=== PATIENT | female | born 1980 ===

== ENCOUNTER 2018-05-23 05:47 | Day surgery (SDC) | payer BC ==
[2018-05-23] VITALS (12 sets, daily range): BP systolic 130–149; BP diastolic 76–99
[~2018-05-23] VITALS: Ht 170.2 cm; Wt 86.2 kg
[~2018-05-23 05:47] MED LIST: CENTRUM ULTRA1 EAC1 PO; GLYCOTROL CAPS1 EACH PO; VITAMIN C500 MG/15 PO
[2018-05-23] MEDS ORDERED: [UNRECOGNIZED DRUG - OTHER] PO (06:37)
[2018-05-23] MEDS ORDERED: PRENATAL FORMU1 EAC5 PO (06:37)
[2018-05-23] MEDS ORDERED: CLARITIN D PO (06:37)
[2018-05-23] MEDS ORDERED: ENSKYCE1 EACH PO (06:37)
[2018-05-23] MEDS ORDERED: cefOXitin Sod 2 GM in D5W 110 ML IVPB ONE (07:00)
[2018-05-23] MEDS ORDERED: Metoclopramide 10mg/2ml Inj IVP PRN (07:15)
[2018-05-23] MEDS ORDERED: LORazepam Inj 2mg/ml 1ml IV PRN (07:15)
[2018-05-23] MEDS ORDERED: Midazolam 2mg/2ml Inj IVP PRN (07:15)
[2018-05-23] MEDS ORDERED: DiphenhydrAMINE 50mg/ml Inj IVP PRN (07:15)
[2018-05-23] MEDS ORDERED: LR 1000ml 1,000 ML IVLG SCH (07:15)
[2018-05-23] MEDS ORDERED: Hydromorphone 0.5mg/0.5ml inj IVP PRN (07:15)
[2018-05-23] MEDS ORDERED: fentaNYL 100 mcg/2 mL IV PRN (07:15)
[2018-05-23] MEDS ORDERED: Ketorolac 30mg Inj IV PRN (07:15)
--- NOTE | 2018-05-23 07:15 | Anethesia Preoperative Eval ---
Anesthesia Pre-op PMH/ROS General Date of Evaluation: May 23, 2018 Anesthesiologist: Trevor ASA Score: ASA 2 Mallampati Score Class I : Soft palate, uvula, fauces, pillars visible Class II: Soft palate, uvula, fauces visible Class III: Soft palate, base of uvula visible Class IV: Only hard plate visible Mallampati Classification: Class II Surgeon: Roro Diagnosis: endometriosis Surgical Procedure: laparoscopic CHAZ, polypectomy, CO2 laser, hysteroscopy Anesthesia History: none Family History: no anesthesia problems Allergies: Coded Allergies: No Known Allergies (Unverified , 03/23/12) Medications: see eMAR Patient NPO?: Yes NPO Date: May 22, 2018 NPO Time: 22:00 Past Medical History Cardiovascular: Denies: HTN, CAD, [place], valve dz, arrhythmia, other Pulmonary: Denies: asthma, COPD, LADY, other Gastrointestinal/Genitourinary: Denies: GERD, CRI, ESRD, other Neurologic/Psychiatric: Denies: dementia, CVA, depression/anxiety, TIA, other Endocrine: Denies: DM, hypothyroidism, steroids, other HEENT: Denies: cataract (L), cataract (R), glaucoma, [place] (L), [place] (R), other Hematology/Immune: Reports: anemia - chronic; Denies: DVT, bleeding disorder, other Musculoskeletal/Integumentary: Denies: OA, RA, DJD, DDD, edema, other PSxH Narrative: breast implants, left foot surgery Anesthesia Pre-op Phys. Exam Physician Exam Last Vital Signs Date Time Temp Pulse Resp B/P (MAP) Pulse Ox O2 Delivery O2 Flow Rate FiO2 05/23/18 06:39 97.7 71 20 138/82 100 Room Air Constitutional: NAD Cardiovascular: RRR Respiratory: CTA Airway Exam Mallampati Score: Class II MO: full ROM: full Teeth: intact Anesthesia Pre-op A/P Labs see chart Urine Test Test 05/23/18 06:10 Urine HCG, Qualitative Negative (NEGATIVE) Studies Pre-op Studies: EKG - sr Risk Assessment & Plan Assessment: ASA II Plan: GA Status Change Before Surgery: No Pre-Antibiotics Drug: Cefoxitin 2g Given Within 1 Hr of Incision: Yes Lexi Murphy MD May 23, 2018 07:15
[2018-05-23] MEDS ORDERED: cefOXitin 2gm Inj ONE (07:20)
[2018-05-23] MEDS ORDERED: Lidocaine 1% MPF 10mg/ml 5ml ONE (07:29)
[2018-05-23] MEDS ORDERED: Propofol 200mg/20ml IV ONE (07:29)
[2018-05-23] MEDS ORDERED: Midazolam 2mg/2ml Inj ONE (07:29)
[2018-05-23] MEDS ORDERED: fentaNYL 100 mcg/2 mL IV ONE (07:29)
[2018-05-23] MEDS ORDERED: Dexamethasone 4mg/ml vial ONE (07:30)
[2018-05-23] MEDS ORDERED: Ketorolac 30mg Inj ONE (07:30)
[2018-05-23] MEDS ORDERED: Ropivacaine 5mg/ml Vial 30ml INJ ONE (07:30)
[2018-05-23] MEDS ORDERED: Metoclopramide 10mg/2ml Inj ONE (07:30)
--- NOTE | 2018-05-23 07:45 | Pre-op HX & Phy Repo 2 SIG ---
NOTE: UNCLEAR AUDIO HISTORY OF PRESENT ILLNESS: The patient is a 37-year-old female with a chief complaint of periodic lower abdominal pain. The patient had multiple visits to the office of and at present time, her main complaint is lower abdominal pain, dysmenorrhea, and dyspareunia. She is also trying to get . GYNECOLOGICAL HISTORY: Menstrual periods at age 15, regular with some cramps, recently menstrual periods every month lasts 5 to 6 days. Several days with blood clots and cramps. She is 1, para 0, 1 at age 7 to 6 weeks, medicated. Abnormal Pap smear in 2018, BRENDAN followed by a colposcopy with cervical biopsy. were negative for dysplasia. She also has had history of salpingogram, which revealed one tube . She has had history of IUD Mirena, which removed and presently, no IUD. Her reversed. MEDICAL HISTORY: Includes hyperthyroidism, presently not on medications, feels fine. SURGERIES: None. HOSPITALIZATIONS: None. FAMILY HISTORY: For cancer is negative. She does not smoke. Drinks occasionally. ALLERGIES: Not known. REVIEW OF SYSTEMS: Noncontributory. PHYSICAL EXAMINATION: GENERAL: A well-developed, well-nourished female in no acute distress. VITAL SIGNS: Stable. Blood pressure 110/60, respirations 16, afebrile. SKIN: No lesions. HEENT: Head, normocephalic, atraumatic. Eyes, pupils reactive to light and accommodation. Ears, tympanic membranes are intact. Mouth, good hygiene. NECK: No thyromegaly. No lymphadenopathy. CARDIAC: Rate and rhythm regular. S1 and S2. LUNGS: Clear to percussion and auscultation. BREASTS: No masses. Nipples without discharge. ABDOMEN: Soft, nontender. Costovertebral angle is nontender. Bowel sounds present. EXTREMITIES: No edema. No erythema. PELVIC: Bartholin, urethral, [place]'s glands within normal limits. Vulva and vagina, no lesions. CERVIX: Closed. Uterus normal size. Adnexa tender bilaterally. LABORATORY DATA: Her blood count, platelets 343, hemoglobin 11.4, hematocrit 35.4, RBC 4.09, and WBC 7.3. Blood type O positive. test is negative. IMPRESSION: Pelvic inflammatory disease, salpingitis, persistent pelvic pain, dyspareunia, dysmenorrhea, hyperthyroidism, desire to get . PLAN: Hysteroscopy with possible D and C, laparoscopy with lysis of the adhesions, and possible removal of damaged tube. Eduarda Gaston M.D. DR: GABRIELLA JOB#: [id number] CC:
--- NOTE | 2018-05-23 07:55 | Pre-Procedure Note/Attestation ---
Pre-Procedure Note/Attestation Complete Prior to Procedure Planned Procedure: left Procedure Narrative: Co2 laser pelviscopy/ lysis of adhesions/ left salpingectomy/ hysterocopy Dilation and possible curettage Indications for Procedure Pre-Operative Diagnosis: left hydrosalpinx/ adhesions on HSG/ pelvic pain Attestation I attest that I discussed the nature of the procedure; its benefits; risks and complications; and alternatives (and the risks and benefits of such alternatives ), prior to the procedure, with the patient (or the patient's legal sales support representative). I attest that, if there was a reasonable possibility of needing a blood transfusion, the patient (or the patient's legal sales support representative) was given the [place] Department [employer] standardized written summary, pursuant to the [place] Blood Safety Act ([place] Health and Safety Code # 1645, as amended). I attest that I re-evaluated the patient just prior to the surgery and that there has been no change in the patient's H&P, except as documented below: Niya Read MD May 23, 2018 07:55
[2018-05-23] MEDS ORDERED: NS Irrig 1000ml ONE (08:00)
[2018-05-23] MEDS ORDERED: LR 1000ml ONE (08:00)
[2018-05-23] MEDS ORDERED: Sterile Water Irrig 1000ml IRRIG ONE (08:00)
[2018-05-23] MEDS ORDERED: ProvayBlue 5mg/ml 10ml amp INJ ONE (08:30)
[2018-05-23] MEDS ORDERED: NS Irrig 1000ml IRRIG ONE (08:35)
[2018-05-23] MEDS ORDERED: NS 275ml IRRIG ONE (08:53)
[2018-05-23] MEDS ORDERED: D5 1/2NS 1,000 ML IV SCH (09:15)
[2018-05-23] MEDS ORDERED: HYDROmorphone 1mg/ml Carpuject SUBQ PRN (09:15)
[2018-05-23] MEDS ORDERED: Tylenol #3 tab (300mg/30mg) ORAL PRN (09:15)
[2018-05-23] MEDS ORDERED: Norco 5mg/325mg tab ORAL PRN (09:15)
--- NOTE | 2018-05-23 09:23 | Immediate Post-Op Evaluation ---
Immediate Post-Op Evalulation Immediate Post-Op Evalulation Procedure: Laparoscopic CHAZ, CO2 laser, polypectomy, hysteroscopy Date of Evaluation: May 23, 2018 Time of Evaluation: 09:23 IV Fluids: 1.2L Blood Products: 0 Estimated Blood Loss: 10 Urinary Output: 0 Blood Pressure Systolic: 144 Blood Pressure Diastolic: 80 Pulse Rate: 91 Respiratory Rate: 16 O2 Sat by Pulse Oximetry: 100 Temperature (Fahrenheit): 97.2 Pain Score (1-10): 0 Nausea: No Vomiting: No Complications 0 Patient Status: awake, reacts, patent, none Hydration Status: adequate Drug: Cefoxitin 2g Given Within 1 Hr of Incision: Yes Time Given: 08:00 Lexi Murphy MD May 23, 2018 09:23
--- NOTE | 2018-05-23 09:23 | 48 Hour Post Anesthesia Eval ---
Post Anesthesia Evaluation Procedure: Laparoscopic CHAZ, CO2 laser, polypectomy, hysteroscopy Date of Evaluation: May 23, 2018 Airway: patent Nausea: No Vomiting: No Pain Intensity: 0 Hydration Status: adequate Cardiopulmonary Status: at baseline Mental Status/LOC: patient returned to baseline Post-Anesthesia Complications: 0 Follow-up care needed: ready to discharge Lexi Murphy MD May 23, 2018 09:23
--- NOTE | 2018-05-23 21:05 | Brief Operative Note ---
Immediate Post Operative Note Operative Note Pre-op Diagnosis: left hydrosalpinx/ adhesions on HSG/ pelvic pain Procedure: CO2 laser pelviscopy; ablation of endometriosis, lysis of adhesions, hysteroscopy dilation and curettage Hydrochromopertut Post-op Diagnosis: same and endometriosis no hydrosalpinxn Surgeon: jonatan Supervisor Beater Room: lillian lara Anesthesiologist: dima Anesthesia: general Specimen: yes - polyp emc Complications: none Condition: stable Fluids: crystalloid Estimated Blood Loss: minimal Drains: none Implant(s) used?: No Niya Read MD May 23, 2018 21:05
--- NOTE | 2018-05-24 01:30 | Operative Note - Dictated ---
DATE OF OPERATION: 05/23/2018 PREOPERATIVE DIAGNOSES: 1. Hydrosalpinx. 2. Dysmenorrhea. 3. Heavy menses. POSTOPERATIVE DIAGNOSES: 1. No hydrosalpinx. 2. Adhesions. 3. Endometriosis and a polyp. PROCEDURE: 1. CO2 laser pelviscopy. 2. Ablation of endometriosis. 3. Lysis of adhesions. 4. Chromopertubation. 5. Hysteroscopy. 6. Removal of polyp. SURGEON: Niya Read M.D. STAMP ANALYST: Huong Cisneros. ANESTHESIOLOGIST: Lexi Driver M.D. ESTIMATED BLOOD LOSS: Minimal. ANESTHESIA: General endotracheal. COMPLICATIONS: None. SPECIMEN REMOVED: Endometrial polyps and curettings. PROCEDURE IN DETAIL: After ensuring informed consent, the patient was taken to the operating room where general anesthesia was induced. The patient was sterilely prepped and draped. A weighted speculum was placed in the vagina. Cervix dilated to an 8 Hegar dilator. Hysteroscope was placed inside the uterine cavity. Uterine cavity was distended with normal saline. The polyp versus small fibroids were observed by the right ostia. Hysteroscope was withdrawn and the lesion was removed with polyp forceps. Attention was turned to the abdomen where a small incision was made inside the umbilicus after infiltration was local Marcaine. A Veress needle was placed inside the peritoneal cavity and peritoneal cavity was distended with CO2 gas. A 10 mm trocar was placed inside the peritoneal cavity and intraperitoneal placement was confirmed with the laparoscope. A right 5 mm trocar was placed under direct visualization. CO2 laser was attached. Pelvis was explored. Uterus appeared normal. Tubes and ovaries appeared to be normal. There were endometriotic implants on the right ovary and some adhesions between bowel and left lateral sidewall. Chromopertubation was performed with free spill of dye in both sides and no hydrosalpinx observed. The endometriotic implant was ablated using CO2 laser as well as the adhesions were lysed using blunt dissection and CO2 laser. Pelvis was copiously irrigated. Excellent hemostasis was assured. All irrigant was suctioned off. All instruments were removed under direct visualization. Intraumbilical port was closed with 0 Vicryl and skin was closed with 4-0 Monocryl, intraumbilical and left lateral planes. Steri-Strips were placed over all ports. Manipulator was removed. At the end of the procedure, all instruments and lap counts were correct x2. The patient was taken to the recovery area, extubated and in stable condition. Niya Read M.D. DR: Jenna JOB#: [id number] CC:
== END 2018-05-23 12:20 | disposition home or self-care (01) ==
LOC: SUR 05:47
DX: N80.1 Endometriosis of ovary (principal); D25.9 Leiomyoma of uterus, unspecified; N73.6 Female pelvic peritoneal adhesions (postinfective); N73.9 Female pelvic inflammatory disease, unspecified; E05.90 Thyrotoxicosis, unspecified without thyrotoxic crisis or storm
CPT/HCPCS: 36415; 81025; 86850; 86900; 86901; 94003; 94150; J2250; J2405; J2765